=== PATIENT | female | born 1955 | race Caucasian/White ===

== ENCOUNTER → 2020-08-30 13:06 | Outpatient (REF) | payer MEDICARE, SELFPAY ==
--- NOTE | 2020-08-30 13:10 | CA_ITS ---
Transthoracic Echocardiogram Patient (Last, First, Middle): Karissa Her, Gender: Female Date of : 1955 Age: 64 Procedure Date: 08/30/2020 Procedure Type: Transthoracic Echocardiogram Location: OP Height: 160.02 cm Weight: 68.04 kg BSA: 1.71 m2 Heart Rate: bpm BP: 126 / 80 mmHg Plumbing Warehouse Helper: ELKE Referring MD: Fauzia Topete MD Photographic Laboratory Technician: Houston Perez MD Symptoms: R00.2 - Palpitations Study Quality: Good ECG Rhythm: Sinus Conclusions: - 1. Normal LV systolic function with impaired relaxation filling pattern 2. Dilated coronary sinus suggestive persistent left superior vena cava 3. Normal cardiac valvular Doppler 4. Normal RV systolic pressure 5. No gross pericardial effusion Findings Left Ventricle Normal left ventricular size, thickness, and systolic function. The visually estimated ejection fraction is between 65-70%. There is no evidence of regional wall motion abnormalities. Spectral Doppler is indicative of an impaired relaxation filling pattern. E/E prime ratio is between 8 and 15 consistent with indeterminate filling pressures. Right Ventricle Normal right ventricular cavity size and systolic function. Atria The left atrium is normal in size. Interatrial shunt cannot be excluded. The right atrium is normal in size. Aortic Valve The aortic valve was not well visualized. There is no aortic valve stenosis. There is no aortic valve regurgitation. Mitral Valve Likely normal mitral valve structure and function. There is trace mitral valve regurgitation. There is no mitral valve stenosis. Pulmonic Valve The pulmonic valve was not well visualized. Tricuspid Valve Likely normal tricuspid valve structure and function. There is mild tricuspid valve regurgitation. The right ventricular systolic pressure is normal. The right ventricular systolic pressure is 37 mmHg. Normal right atrial pressure. There is no evidence of pulmonary hypertension. Great Vessels All visible segments of the aorta are normal in size. The pulmonary artery was not well visualized. Venous The inferior vena cava is normal in size and collapses greater than 50% with inspiration. There is evidence of a dilated coronary sinus. 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 Prior Study Comparison No prior study available for comparison. Recommendations, Care & Conclusions Recommend saline contrast study for persistent left sided SVC. Measurements 2D Linear Measurements IVSd: 0.98 0.6-0.9/0.6-1.0 cm LVIDd: 4.89 3.9-5.3/4.2-5.9 cm LVIDd Index: 2.86 2.4-3.2/2.2-3.1 cm/m2 LVIDs: 2.70 2.0-3.6 cm LVPWd: 0.92 0.7-1.1 cm Ao Root: 2.70 2.1-3.5 cm LA Diam: 4.40 2.7-3.8/3.0-4.0 cm LAIDs Index: 2.57 1.5-2.3 cm/m2 LV Mass: 204.54 67-162/88-224 g LV Mass Index: 119.61 43-95/49-115 g/m2 LVOT Diam: 2.00 3.0+(-)1.3 cm 2D Systolic Function EF 4C: 72.30 >55% EF 2C: 69.10 >55% EF BiP: 70.00 >55% Mitral Valve MV Pk E: 0.69 MV PK A: 0.74 MV Decel Time: 189.00 E/A: 0.90 E'Lateral: 7.07 E'Medial: 4.68 E/E' Med: 14.70 E/E' Lat: 9.70 PHT: 55.00 MVA PHT: 4.00 Decel [place]: 3.63 Aortic Valve AoV Pk Shai: 1.37 AoV Pk Grad: 8.00 LVOT LVOT Pk Shai: 0.91 LVOT Mn Shai: 0.62 LVOT VTI: 0.22 LVOT Pk Grad: 3.00 LVOT Mn Grad: 2.00 LVOT Diam: 2.00 LVOT Area: 3.14 Diastolic Function MV Pk E: 0.69 MV Pk A: 0.74 E/A: 0.90 E'Medial: 4.68 E/E' Med: 14.70 E' Laterial: 7.07 E/E' Lat: 9.70 Tricuspid Valve TR Pk Shai: 2.92 TR Pk Grad: 34.00 RA Press: 3.00 RVSP: 37.00 Great Vessels Aorta Ao Root-2D: 2.70 2.0-3.7 cm Ao Asc: 3.30 2.1-3.4 cm Ao Arch: 2.70 Updated in Other Vendor System with Status of Final Houston Perez MD electronically signed on 08/31/2020 1:13:18 PM with status of Final
== END ==
LOC: HO.CARD 13:06
PROVIDERS: Visit Provider Internal Medicine
DX: R00.2 Palpitations (principal)
CPT/HCPCS: 93306

== ENCOUNTER 2020-10-12 14:03 | Outpatient (REF) | payer MEDICARE, SELFPAY | END 2020-10-12 14:04 | disposition home or self-care (01) | LOC: HO.LNP 14:03 | PROVIDERS: Visit Provider Hospitalist | DX: J01.90 Acute sinusitis, unspecified (principal); Z20.822 Contact with and (suspected) exposure to COVID-19 | CPT/HCPCS: U0003; U0005 ==

== ENCOUNTER 2022-09-05 11:48 | Emergency (ER) | payer MEDICARE, SELFPAY ==
[2022-09-05 11:52] VITALS: BP 193/93; PULSE 92; RESP 18; TEMP 36.6; O2SAT 96; BMI 26.6
--- NOTE | 2022-09-05 11:52 | ED.GENADULT ---
HPI - General Adult General Chief complaint: Wound/Laceration Stated complaint: Finger Lac Injury 09/05/22 Time Seen by Provider: 09/05/22 12:14 Source: patient and family (patient's ) Mode of arrival: ambulatory Limitations: no limitations History of Present Illness HPI narrative: Patient is a 66 year old assigned female at with a history of HTN and depression presenting to the emergency department today with a right thumb laceration. Patient states that she was using a mandolin and she cut her right thumb. Patient denies any dizziness, lightheadedness, abdominal pain, nausea, vomiting, fever, chills, blurry vision, double vision, loss of vision, chest pain, difficulty breathing, shortness of breath, back pain, night sweats, pain with urination, increased urinary frequency, increased urinary urgency, blood in her urine or stool, syncope or a near syncopal episode, bowel incontinence, bladder incontinence, bowel retention, bladder retention, or any other complaints at this time. Onset (ago): minute(s) Location: right and upper extremity Radiation: non-radiation Severity: mild Severity scale (1-10): 3 Quality: aching Pain Consistency: constant Relieving factors: none Exacerbating factors: none Associated symptoms: denies other symptoms Treatments prior to arrival: none Related Data Home Medications Medication Instructions Recorded Confirmed allopurinol 100 mg tablet 100 mg PO DAILY 12/14/19 04/21/22 atenolol 100 mg tablet 100 mg PO DAILY 12/14/19 04/21/22 mirtazapine 30 mg tablet 30 mg PO BEDTIME 12/14/19 04/21/22 rosuvastatin 10 mg tablet 10 mg PO BEDTIME 12/14/19 04/21/22 levothyroxine 75 mcg tablet 75 mcg PO DAILY 07/09/20 04/21/22 alprazolam 0.5 mg tablet 0.5 mg PO DAILY 12/13/20 04/21/22 amlodipine 5 mg tablet 5 mg PO DAILY 12/13/20 04/21/22 hydrochlorothiazide 25 mg tablet 25 mg PO DAILY 12/13/20 04/21/22 cholecalciferol (vitamin D3) 50 50 mcg PO DAILY 06/17/21 04/21/22 mcg (2,000 unit) tablet folic acid 1 mg tablet 1 mg PO DAILY 04/11/22 02/13/23 Previous Rx's Medication Instructions Recorded syringe with needle, safety 3 mL #100 ea 04/05/20 25 gauge x 1 blood sugar diagnostic (FreeStyle #100 ea 12/19/21 Test strips) freestyle glucometer #1 ea 12/19/21 lancets 28 gauge (FreeStyle #100 ea 12/19/21 Lancets) cyanocobalamin (vitamin B-12) 1,000 mcg IM .qmonth #100 mL 04/15/22 1,000 mcg/mL injection solution amoxicillin 875 mg-potassium 1 tab PO BID 7 days #14 tabs 09/05/22 clavulanate 125 mg tablet Allergies Allergy/AdvReac Type Severity Reaction Status Date / Time ANTONIO Inhibitors Allergy Severe ANGIOEDEMA Verified 04/21/22 09:57 [ANTONIO INHIBITORS] morphine Allergy Unknown rash Verified 04/21/22 09:57 atorvastatin [Lipitor] AdvReac Unknown muscle pain Verified 04/21/22 09:57 metformin AdvReac Unknown diarrhea Verified 04/21/22 09:57 pravastatin AdvReac Unknown mylagia Verified 04/21/22 09:57 Review of Systems Constitutional: Constitutional: Reports no additional constitutional complaints, Denies chills, Denies fever(s) and Denies night sweats Eyes: Eyes: Reports no additional eye complaints, Denies blurry vision, Denies change in vision, Denies diplopia, Denies eye discharge, Denies loss of vision and Denies eye pain ENT: Denies dizziness Cardiovascular: Cardiovascular: Reports no additional cardiovascular complaints, Denies chest pain, Denies lightheadedness, Denies Loss of Consciousness and Denies dyspnea Respiratory: Respiratory: Reports no additional respiratory complaints and Denies dyspnea Gastrointestinal: Gastrointestinal: Reports no additional gastrointestinal complaints, Denies abdominal pain, Denies melena, Denies hematochezia, Denies change in bowel habits and Denies change in stool character Genitourinary: Genitourinary: Denies hematuria, Denies urinary frequency, Denies dysuria, Denies urinary incontinence, Denies urinary hesitancy and Denies urinary urgency Musculoskeletal: Musculoskeletal: Reports no additional musculoskeletal complaints, Denies numbness and Denies tingling Comments: right thumb laceration Neurologic: Denies dizziness, Denies loss of vision, Denies numbness and Denies tingling Psychiatric: Psychiatric: Reports no additional psychiatric complaints Endocrine: Endocrine: Reports no additional endocrine complaints Hematologic/Lymphatic: Hematologic/Lymphatic: Reports no additional hematologic/lymphatic complaints Allergic/Immunologic: Allergic/Immunologic: Reports no additional allergic/immunologic complaints [facility] Past Medical History Attestation statement: The following information was validated with the patient. (patient's validated all information) Source: old records reviewed, obtained from family (patient's provided additional history and confirmed the history provided by the patient.) and nursing notes reviewed Medical History Annual physical exam Chronic kidney disease Colonoscopy refused Depression Folic acid deficiency HTN (hypertension) Hyperglycemia Hyperlipidemia Hypothyroid Mammogram normal Normal Pap smear Palpitations Proteinuria PTSD (post-traumatic stress disorder) Spleen injury Tongue cancer Vitamin D deficiency Surgical History H/O colonoscopy Family History Family History Father Lung cancer HTN (hypertension) Mother HTN (hypertension) Brother No problems noted. Sister No problems noted. Social History Social History Housing: House Alcohol intake: current Alcohol intake frequency: holidays/special occasions only Patient Tobacco Use Status: Former Tobacco user Smoked in Last 30 Days: No e-Cigarette/Vaping Use: Never Used Use of substances other than those prescribed or required for medical reasons: No Advance Directives: No Advance Directives Information Provided: No Current occupational status: retired Cognitive needs: No Hearing needs: No Vision needs: Yes Physical Exam ED Vital Signs: Vital Signs - 24 hr 09/05/22 11:52 Temperature 97.9 F Pulse Rate 92 Respiratory Rate 18 Blood Pressure 193/93 H Pulse Oximetry 96 Oxygen Delivery Method Room Air BMI result Body Mass Index 26.6 Const General: cooperative, no acute distress, alert and awake Nutritional Appearance: well nourished Orientation/consciousness: patient oriented x3 Limitations: no limitations HENMT Head: Yes normal to inspection and Yes atraumatic Ears: hearing grossly normal bilaterally and external ears normal General nose exam: Normal external nose present, no nasal discharge noted and no epistaxis Face and sinus: Yes normal facial exam, No abrasion and No laceration Mouth: Normal oral and palatal mucosa present, no drooling and no muffled voice Eyes General: appearance normal, both eyes and all related structures Periorbital: periorbital findings normal Eyelids: Yes eyelids normal Conjunctivae: conjunctivae normal Pupils: Equal, round and reactive pupils present EOM: EOMs intact bilaterally Neck Neck: Yes normal visual inspection, Yes full ROM and Yes no lymphadenopathy Chest Chest palpation & inspection: normal inspection of the chest Resp Effort & Inspection: normal respiratory effort and able to speak in complete sentences GI Inspection: Yes normal to inspection Neuro General: patient oriented x3 and moves all extremities Cranial nerves: Yes Equal, round and reactive pupils present Cognition (Neuro): normal cognition Motor exam (neuro): 5/5 motor strength present throughout Sensory Exam: Normal double simultaneous stimulation for sensation Coordination: [id number] test normal Extrem Other: 2cm laceration to the radial aspect of the right thumb General: Yes full ROM and Yes capillary refill normal Psych Appearance: grossly normal Mental Status: mental status grossly normal Affect: normal affect Attitude: cooperative Thought process: Normal thought process present Thought content: Normal thought content present Insight: Good insight present (Psych) Course Course Course Narrative: This is an RME: Additional HPI, ROS, PE not included below will be deferred to primary provider. 66 year old female presents w/ avulsion to R. thumb s/p using a mandoline cutter [employer]. Unclear last tetanus shot. Plan- wound care, boostrix Medications Administered Discontinued Medications Generic Name Dose Route Start Last Admin Trade Name Freq PRN Reason Stop Dose Admin Diphtheria/Tetanus/Acell Pertussis 0.5 ml 09/05/22 11:52 09/05/22 12:46 Diphth,Pertus(Acell),Tet Adult 0.5 Ml Syringe IM 09/05/22 11:53 0.5 ml .ONCE ONE Administration Lidocaine HCl 10 ml 09/05/22 12:32 09/05/22 13:50 Lidocaine Hcl 1 % Mpf 5 Ml Vial SUBCUT 09/05/22 12:33 10 ml ONCE ONE Administration Procedures Laceration Laceration 1: Site: other (thumb) Side (If applicable): right Size (cm): 2 Description: linear Depth: simple, single layer Local Anesthetic: lidocaine 1% Amount of anesthesia used (mL): 10 Pre-repair: wound explored, irrigated extensively and deep structures intact Skin layer closed with: other (prolene) Size (cm): 6-0 Number of sutures: 1 Technique: simple, interrupted Medical Decision Making Medical Decision Making MDM Narrative: Patient is a 66 year old assigned female at with a history of HTN and depression presenting to the emergency department today with a right thumb laceration. Patient's physical exam was as noted in the physical exam portion of this chart. I explained my physical exam findings to the patient and the patient's . I answered all questions asked by the patient and the patient's . Patient's laceration was repaired with 1 suture and covered with surgicell given it's shaved nature being largely unable to be repaired. Patient's wound was then covered with a non-adherent gauze. Patient's PMS was intact prior to and after suturing and wound dressing. I stressed the importance of the patient taking her medication as prescribed. I stressed the importance of the patient following up with her primary care provider. I stressed the importance of performing daily wound checks and dressing changes. I stressed the importance of the patient having her suture removed in 7-10 days. I stressed the importance of the patient returning to the emergency department immediately if her symptoms were to worsen or if she were to develop any dizziness, shortness of breath, difficulty breathing, chest pain, blurry vision, loss of vision, nausea, vomiting, abdominal pain, fever, chills, back pain, or any other complaints. Patient and the patient's verbalized agreement and understanding with this treatment plan and discharge. Differential Diagnosis Differential Diagnoses: The differential diagnosis associated with the presentation includes Right thumb laceration Thumb abrasion Thumb avulsion Independent Historian Clinical information obtained from an independent historian. History obtained from or confirmed by: Spouse (patient's provided additional history and confirmed the history provided by the patient.) Prescription Management I considered prescription management with: Antibiotic (patient prescribed an antibiotic) Chronic Conditions Patient?s care impacted by: Hypertension Discharge Plan Discharge Clinical Impression: Laceration of thumb Patient Disposition: Home, Self-Care Instructions: Care For Your Stitches (DC), Laceration (DC), Laceration Without Closure (ED) Additional Instructions: Have your suture (1) removed in 7-10 days. Do NOT get the affected area wet at all for 3 days and do NOT soak the affected area until after the suture is out. Perform daily wound checks and dressing changes after your initial dressing change after day 3. Take your antibiotic as prescribed. Follow up with your primary care provider. Return to the emergency department immediately if your symptoms worsen or if you develop any dizziness, shortness of breath, difficulty breathing, chest pain, blurry vision, loss of vision, nausea, vomiting, abdominal pain, fever, chills, back pain, or any other complaints. Prescriptions: New amoxicillin-pot clavulanate 875-125 mg tablet 1 tab PO BID 7 Days Qty: 14 0RF No Action (DME) syringe with needle, safety 3 mL 25 gauge x 1 syringe See Rx Instructions .ROUTE .MEDSUPPLY Qty: 100 4RF Rx Instructions: use one syringe once a month for B12 injections (DME) lancets [FreeStyle Lancets] 28 gauge misc See Rx Instructions .Route Qty: 100 5RF Rx Instructions: check glucose once a day (DME) freestyle glucometer See Rx Instructions .Route .MEDSUPPLY Qty: 1 0RF Rx Instructions: As directed (DME) FreeStyle Test Strip See Rx Instructions .Route Qty: 100 5RF Rx Instructions: check glucose once a day cyanocobalamin (vitamin B-12) 1,000 mcg/mL solution 1,000 mcg IM .qmonth Qty: 100 6RF allopurinol 100 mg tablet 100 mg PO DAILY rosuvastatin 10 mg tablet 10 mg PO BEDTIME atenolol 100 mg tablet 100 mg PO DAILY mirtazapine 30 mg tablet 30 mg PO BEDTIME levothyroxine 75 mcg tablet 75 mcg PO DAILY amlodipine 5 mg tablet 5 mg PO DAILY alprazolam 0.5 mg tablet 0.5 mg PO DAILY hydrochlorothiazide 25 mg tablet 25 mg PO DAILY cholecalciferol (vitamin D3) 50 mcg (2,000 unit) tablet 50 mcg PO DAILY folic acid 1 mg tablet 1 mg PO DAILY Referrals: Fauzia Topete MD [Primary Care Provider] - Interventions: ED Discharge Assessment Last Done: 09/05/22 14:04 Discharge Date/Time: 09/05/22 14:05 Print Language: Tanzanian
--- OUTSIDE RECORDS SUMMARY | 2022-09-05 12:14 | XMS_ITS | Continuity of Care Document ---
Author Name Unknown Organization [facility] Address [address] [place] [id number] Care Team Providers Care Slurry Man Name Role Phone Fauzia Topete MD Primary Care Physician [phone] Encounter [facility] Date(s): 01/18/21 - 02/17/21 [facility] [address] [place] [id number] Allergies, Adverse Reactions, Alerts Substance Reaction Severity Status morphine 1 Active ANTONIO inhibitors angioedema Active 1itching/rash and lump in throat Immunizations Given and Recorded Vaccine Date Status Refusal Reason influenza virus vaccine, inactivated 1 12/12/17 Gi petros influenza virus vaccine, inactivated 2 01/16/17 Gi petros influenza virus vaccine, inactivated 03/13/16 Give n influenza virus vaccine, inactivated 12/30/11 Lazarus rded influenza virus vaccine, inactivated 3 04/01/09 Re corded influenza virus vaccine, inactivated 4 04/01/09 Re corded Pneumococcal Poly (PPV23) (oldterm) 5 02/04/17 Giv en Zoster Vaccine Live 6 02/04/17 Given Meningococcal Conjugate Vaccine 7 04/06/09 Recorde d Meningococcal Conjugate Vaccine 8 04/05/09 Recorde d Haemophilus B conjugate (HbOC) vaccine 9 04/05/09 Recorded pneumococcal 23-valent vaccine 10 04/01/09 Recorde d Tet/diphth/pertussis, acel (oldterm) 11 06/21/08 Tono teixeira 1Result Comment: [12/12/2017] [id number] 2Result Comment: [01/16/2017] [facility] [id number] 3Result Comment: [01/15/2017] done at [facility] 4Result Comment: [01/15/2017] done at [facility] 5Result Comment: [02/04/2017] [facility] [id number] 6Result Comment: [02/04/2017] [facility] [id number] 7Result Comment: [01/15/2017] done at [facility] 8Result Comment: [01/15/2017] done at [facility] 9Result Comment: [01/15/2017] done at [facility] 10Result Comment: [01/15/2017] done at [facility] 11Admin Note: sanofi pasteur Medications Allopurinol 100 mg, By Mouth, Daily, Dr. Alfaro, Refills 0, Maintenance, 03/13/16 9:58:26 Start Date: 03/13/16 Status: Ordered Alprazolam 0.5 mg, By Mouth, 2 times a day, Refills 0, Maintenance, 01/12/19 14:55:08 EST Start Date: 01/12/19 Status: Ordered atenolol 100 mg oral tablet 1 tablet = 100 mg, By Mouth, Daily, Dr. Alfaro, 0 Refills, Maintenance, 04/27/17 13:54:51 Start Date: 04/27/17 Status: Ordered B-12 Intramuscular, 0 Refills, Maintenance, 01/12/19 14:55:27 EST Start Date: 01/12/19 Status: Ordered hydrochlorothiazide 25 mg oral tablet 25 mg, 1, tablet, By Mouth, Daily, Refills 0, Maintenance, 01/18/21 10:47:00 EST, Partial fill uponpatient request if the prescription is for a schedule II opioid drug. Start Date: 01/18/21 Status: Ordered levothyroxine 75 mcg (0.075 mg) oral capsule 1 capsule = 75 mcg, By Mouth, Daily, 0 Refills, Maintenance, 01/18/21 10:47:00 EST, Partial fill upon patient request if the prescription is for a schedule II opioid drug. Start Date: 01/18/21 Status: Ordered Remeron 30 mg oral tablet 1 tablet = 30 mg, By Mouth, Daily at bedtime, Generic only, # 90 tablet, 1 Refills, Maintenance, 05/08/17 9:23:53, Tablet Start Date: 05/08/17 Stop Date: 11/04/17 Status: Ordered Rosuvastatin By Mouth, Daily, 0 Refills, Maintenance, 01/18/21 10:47:00 EST, Partial fill upon patient request if the prescription is for a schedule II opioid drug. Start Date: 01/18/21 Status: Ordered syringes, 1ml 25g, 1 in syringes, 1ml 25g, 1 in, See Instructions, # 30 each, Refills 3, Tot. Refills 3, Maintenance, please use every 30 days for B12 inj. Please disreguard 31 G 07/22, 06/25/18 11:47:56 EDT, Compound Start Date: 06/25/18 Status: Ordered Vitamin B-12 1000 mcg/mL injectable solution 1 mL = 1,000 mcg, Intramuscular, Every 30 days, # 3 mL, 0 Refills, Maintenance, 09/23/18 11:37:00 EDT, Solution Start Date: 09/23/18 Status: Ordered Problem List Condition Effective Dates Status Health Status Inform ant Anxiety(Confirmed) Active Chronic kidney disease stage 3(Confirmed) Active Hyperlipidemia(Confirmed) Active Hypertension(Confirmed) Active Pernicious anemia(Confirmed) Active Splenic rupture(Confirmed) Active Social History Social History Type Response Smoking Status Former smoker; Tobac co user in household: No; Type: Cigarettes; Other: Quit in 2013; Tobacco use times per day: half a pack to pack a day; Number of years: 30; Total pack years: 30; entered on: 05/29/14 Sex
--- OUTSIDE RECORDS SUMMARY | 2022-09-05 12:14 | XMS_ITS | Continuity of Care Document ---
Author Name Unknown Organization [facility] Address [address] [place] [address]- Care Team Providers Care Government Relations Analyst Name Role Phone Fauzia Topete MD Primary Care Physician [phone] [facility] Date[facility]s): 09/13/20 - 10/13/[address] [address] Attending Physician: AdmKadi monte Admitting Physician: Admtr, Kadi Referring Physician: Admtr, Ar8 Allergies, Adverse Reactions, Alerts Substance Reaction Severity [...] Recorde d Tet/diphth/pertussis, acel (oldterm) 11 06/21/08 G puneet 1Result Comment: [12/12/2017] [id number] 2Result Comment: [01/16/2017] [facility] 07189-657-10 3Result Comment: [01/15/2017] done at [facility] 4Result Comment: [01/15/2017] done at [facility] 5Result Comment: [02/04/2017] [facility] [id number] 6Result Comment: [02/04/2017] [facility] [id number] 7Result Comment: [01/15/2017] done at [facility] 8Result Comment: [01/15/2017] done at [facility] 9Result Comment: [01/15/2017] done at [facility] 10Result Comment: [01/15/2017] done at [facility] 11Admin Note: sanofi pasteur Medications Allopurinol 100 mg, By Mouth, Daily, Dr. Alfaro, Refills 0, Maintenance, 03/13/16 9:58:26 Start Date: 03/13/16 Status: Ordered Alprazolam 0.5 mg, By Mouth, 2 times a day, Refills 0, Maintenance, 01/12/19 14:55:08 EST Start Date: 01/12/19 Status: Ordered amLODIPine 5 mg oral tablet 10 mg, 2, tablet, By Mouth, Daily, # 180 tablet, Refills 2, Tot. Refills 2, Maintenance, 01/29/17 11:27:39 EST, Route to Pharmacy Electronically, [facility] Start Date: 01/29/17 Stop Date: 10/26/17 Status: Ordered atenolol 100 mg oral tablet 1 tablet = 100 mg, By Mouth, Daily, Dr. Alfaro, 0 Refills, Maintenance, 04/27/17 13:54:51 Start Date: 04/27/17 Status: Ordered B-12 Intramuscular, 0 Refills, Maintenance, 01/12/19 14:55:27 EST Start Date: 01/12/19 Status: Ordered Folic Acid = 1 mg, Daily, 0 Refills, Maintenance, 04/27/17 13:56:09 Start Date: 04/27/17 Status: Ordered oxyCODONE 5 mg/5 mL oral solution See Instructions, 5 mL PO QHS, PRN pain. Hold in mouth 30 seconds under tongue. Use Advil or tylenol for breakthrough pain, # 60 mL, 0 Refills, Maintenance, 08/08/19 11:24:00 EDT, Solution, [id number], Partial fill upon patient request, 158, c... Start Date: 08/08/19 Status: Ordered Remeron 30 mg oral tablet 1 tablet = 30 mg, By Mouth, Daily at bedtime, Generic only, # 90 tablet, 1 Refills, Maintenance, 05/08/17 9:23:53, Tablet Start Date: 05/08/17 Stop Date: 11/04/17 Status: Ordered Silvadene 1% cream 1 application, Topically, 3 times a day, apply to affected areas TID, # 400 Gm, 2 Refills, Maintenance, 03/15/19 15:03:00 EST, Cream, [facility]/pharmacy #[id number], 1 application Topically 3 times a day,Instr:apply to affected areas TID, 158, cm, 02/22/19 12:59:... Start Date: 03/15/19 Status: Ordered syringes, 1ml 25g, 1 in [...]
--- OUTSIDE RECORDS SUMMARY | 2022-09-05 12:14 | XMS_ITS | Continuity of Care Document ---
Author Name Unknown Organization [facility] Address [address] [place] [address]- Care Team Providers Care Armoured Corps Officer Name Role Phone Fauzia Topete MD Primary Care Physician [phone] [facility]counter [facility] Date(s): 06/25/21 - 07/25/21 [facility] [address] [place], [place] [address] Attending Physician: Kadi Nuñez Admitting Physician: Kadi Nuñez Referring Physician: AdmtrKadi Allergies, Adverse Reactions, Alerts Substance Reaction Severity [...] 11 06/21/08 G puneet 1Result Comment: [12/12/2017] 22144-699-99 2Result Comment: [01/16/2017] [facility] [id number] 3Result Comment: [01/15/2017] done at [facility] 4Result Comment: [01/15/2017] done at [facility] 5Result Comment: [02/04/2017] [facility] [id number] 6Result Comment: [02/04/2017] [facility] [id number] 7Result Comment: [01/15/2017] done at [facility] 8Result Comment: [01/15/2017] done at [facility] 9Result Comment: [01/15/2017] done at [facility] 10Result Comment: [01/15/2017] done at [facility] 11Admin Note: sanofi pasteur Medications Allopurinol 100 mg, By Mouth, Daily, Dr. Alfaro, Refills 0, Maintenance, 03/13/16 9:58:26 Start Date: 03/13/16 Status: Ordered Alprazolam 0.5 mg, By Mouth, 2 times a day, Refills 0, Maintenance, 01/12/19 14:55:08 EST Start Date: 01/12/19 Status: Ordered amLODIPine 5 mg oral tablet 5 mg, 1, tablet, By Mouth, Daily, Refills 0, Maintenance, 07/19/21 9:45:00 EDT, Partial fill upon patient request if the prescription is for a schedule II opioid drug. Start Date: 07/19/21 Status: Ordered atenolol 100 mg oral tablet 1 tablet = 100 mg, By Mouth, Daily, Dr. Alfaro, 0 Refills, Maintenance, 04/27/17 13:54:51 Start Date: 04/27/17 Status: Ordered B-12 Intramuscular, 0 Refills, Maintenance, 01/12/19 14:55:27 EST Start Date: 01/12/19 Status: Ordered Fish Oil 1200 mg oral capsule 1 capsule = 1,200 mg, By Mouth, 3 times a day, 0 Refills, Maintenance, 07/19/21 9:46:00 EDT, Partial fill upon patient request if the prescription is for a schedule II opioid drug. Start Date: 07/19/21 Status: Ordered folic acid 1 mg oral tablet 1 mg, 1, tablet, By Mouth, Daily, # 30 tablet, Refills 0, Maintenance, 07/19/21 9:45:00 EDT, Partial fill upon patient request if the prescription is for a schedule II opioid drug. Start Date: 07/19/21 Status: Ordered hydrochlorothiazide 25 mg oral tablet [...] 05/08/17 Stop Date: 11/04/17 Status: Ordered Rosuvastatin = 10 mg, By Mouth, Daily, 0 Refills, Maintenance, 01/18/21 [...]
--- OUTSIDE RECORDS SUMMARY | 2022-09-05 12:14 | XMS_ITS | Continuity of Care Document ---
Author Name Unknown Organization [facility] Address [address] [place] [address]- Care Team Providers Care Boat Deckhand Name Role Phone Fauzia Topete MD Primary Care Physician Encounter [facility] Date(s): 05/09/20 - 06/08/20 [facility] [address] [place] [id number] Attending Physician: Kadi Nuñez Admitting Physician: AdmtrKadi Referring Physician: Admtr, Ar8 Allergies, Adverse Reactions, [...] 11 06/21/08 G puneet 1Result Comment: [12/12/2017] [id number] 2Result Comment: [01/16/2017] [facility] 33500-871-60 3Result Comment: [01/15/2017] done at [facility] 4Result Comment: [01/15/2017] done at [facility] 5Result Comment: [02/04/2017] [facility] [id number] 6Result Comment: [02/04/2017] [facility] 5524-6926-35 7Result Comment: [01/15/2017] done at [facility] 8Result Comment: [01/15/2017] done at [facility] 9Result Comment: [01/15/2017] done at [facility] 10Result Comment: [01/15/2017] done at [facility] 11Admin Note: sanofi pasteur Medications Allopurinol [...] Refills, Maintenance, 08/08/19 11:24:00 EDT, Solution, [id number], Partial fill upon patient request, 158, c... [...] 2 Refills, Maintenance, 03/15/19 15:03:00 EST, Cream, [facility]/pharmacy #[id number], 1 application Topically 3 times a [...]
--- OUTSIDE RECORDS SUMMARY | 2022-09-05 12:14 | XMS_ITS | Continuity of Care Document ---
Author Name Unknown Organization [facility] Address [address] [place] [address]- Care Team Providers Care Abrasive Mixer Name Role Phone Fauzia Topete MD Primary Care Physician [phone] [facility]counter [facility] Date[facility]s): 12/11/21 - 01/10/22 [facility] [address] [place], [place] [address] Attending Physician: Kadi Nuñez Admitting Physician: Kadi [...] 11 06/21/08 G puneet 1Result Comment: [12/12/2017] [id number] 2Result Comment: [01/16/2017] [facility] [id number] 3Result Comment: [01/15/2017] done at [facility] 4Result Comment: [01/15/2017] done at [facility] 5Result Comment: [02/04/2017] [facility] [id number] 6Result Comment: [02/04/2017] [facility] 2391-3243-32 7Result Comment: [01/15/2017] done at [facility] 8Result Comment: [01/15/2017] done at [facility] 9Result Comment: [01/15/2017] done at [facility] 10Result Comment: [01/15/2017] done at [facility] 11Admin Note: sanofi pasteur Medications [...] Date: 09/23/18 Status: Ordered Problem List Condition Confirmation Course Effective Dates Status H ealth Status Informant Anxiety Confirmed Active Chronic kidney disease stage 3 Confirmed Active Hyperlipidemia Confirmed Active Hypertension Confirmed Active Pernicious anemia Confirmed Active Splenic rupture Confirmed Active Social History Social History Type Response Smoking Status Former smoker; Tobac co user in household: No; Type: Cigarettes; Other: Quit in 2013; Tobacco use times per day: half a pack to pack a day; Number of years: 30; Total pack years: 30; entered on: 05/29/14 Sex Patient Care team information Personnel Name: Fauzia Topete MD Address: Address: [address] [place], [place] [address]
--- OUTSIDE RECORDS SUMMARY | 2022-09-05 12:15 | XMS_ITS | Continuity of Care Document ---
Author Name Unknown Organization [facility] Address [address] [place] [address]- Care Team Providers Care Color Printer Operator Name Role Phone Fauzia Topete MD Primary Care Physician [facility]counter [facility] Date(s): 06/25/21 - 09/18/21 [facility] [address] [place] [address]- Discharge Disposition: A-D/C Home Attending Physician: Rudi Mcnally MD Admitting Physician: Rudi Mcnally MD Referring Physician: Saulo Goel JR, MD Allergies, Adverse Reactions, Alerts Substance Reaction Severity [...] 11 06/21/08 G puneet 1Result Comment: [12/12/2017] [id number] 2Result Comment: [01/16/2017] [facility] [id number] 3Result Comment: [01/15/2017] done at [facility] 4Result Comment: [01/15/2017] done at [facility] 5Result Comment: [02/04/2017] [facility] [id number] 6Result Comment: [02/04/2017] [facility] [id number] 7Result Comment: [01/15/2017] done at [facility] 8Result Comment: [01/15/2017] done at [facility] 9Result Comment: [01/15/2017] done at [facility] 10Result Comment: [01/15/2017] done at [facility] 11Admin Note: sanofi pasteur Medications Allopurinol 100 [...] Active Pernicious anemia(Confirmed) Active Splenic rupture(Confirmed) Active Vital Signs Most recent to oldest [Reference Range]: 1 Height 158 cm (5/13/22 9:17 AM) Weight 69.8 kg (07/19/21 9:17 AM) Pulse Rate [55-90 bpm] 74 bpm (07/19/21 9:17 AM) Body Mass Index [18.5-24.99] 27.96 *H* (07/19/21 9:17 AM) Blood Pressure [90-138/55-84 mm Hg] 138/ 83mm Hg (07/19/21: AM) Temperature [96.8-100.4 DegF] 97.5 DegF (07/19/21 9: AM) Blood pressure sites Arm, right (07/19/21 9: AM) Temperature Route Temporal (07/19/21: AM) Dry Weight 69.8 kg (07/19/21 9:17 AM) Weight Obtained Via Standing scale (07/19/21 9:17 AM) Dry Weight Obtained Via Standing scale (07/19/21 9:17 AM) Social History Social History Type Response Smoking Status Former smoker; Tobac co user in household: No; Type: Cigarettes; Other: Quit in 2013; Tobacco use times per day: half a pack to pack a day; Number of years: 30; Total pack years: 30; entered on: 05/29/14 Sex
--- OUTSIDE RECORDS SUMMARY | 2022-09-05 12:15 | XMS_ITS | Continuity of Care Document ---
Author Name Unknown Organization [facility] Address [address] [place] [address]- Care Team Providers Care Equine Intern Name Role Phone Fauzia Topete MD Primary Care Physician [phone] Encounter [facility] Date(s): 12/10/20 - 03/20/21 [facility] [address] [place] [id number] Discharge Disposition: A-D/C Home Attending Physician: Rudi [...] 11 06/21/08 G puneet 1Result Comment: [12/12/2017] [id number] 2Result Comment: [01/16/2017] [facility] 29543-118-28 3Result Comment: [01/15/2017] done at [facility] 4Result Comment: [01/15/2017] done at [facility] 5Result Comment: [02/04/2017] [facility] [id number] 6Result Comment: [02/04/2017] [facility] [id number] 7Result Comment: [01/15/2017] done at [facility] 8Result Comment: [01/15/2017] done at [facility] 9Result Comment: [01/15/2017] done at [facility] 10Result Comment: [01/15/2017] [facility] oldest [Reference Range]: 1 Height 158 cm (01/18/21 10:45 AM) Weight 67.3 kg (01/18/21 10:45 AM) Pulse Rate [55-90 bpm] 79 bpm (01/18/21 10:45 AM) Body Mass Index [18.5-24.99] 26.96 *H* (01/18/21 10:45 AM) Blood Pressure [90-138/55-84 mm Hg] 120/ 74mm Hg (01/18/21 10:45 AM) Temperature [96.8-100.4 DegF] 98.1 DegF (01/18/21 10:45 AM) Blood pressure sites Arm, right (01/18/21 10:45 AM) Temperature Route Temporal (01/18/21 10:45 AM) Dry Weight 67.3 kg (01/18/21 10:45 AM) Weight Obtained Via Standing scale (01/18/21 10:45 AM) Dry Weight Obtained Via Standing scale (01/18/21 10:45 AM) Social History Social History Type Response Smoking Status Former smoker; Tobac co user in household: No; Type: Cigarettes; Other: Quit in 2013; Tobacco use times per day: half a pack to pack a day; Number of years: 30; Total pack years: 30; entered on: 05/29/14 Sex
--- OUTSIDE RECORDS SUMMARY | 2022-09-05 12:15 | XMS_ITS | Continuity of Care Document ---
Author Name Unknown Organization [facility] Address [address] [place] [address]- Care Team Providers Care Sales Process Manager Name Role Phone Fauzia Topete MD Primary Care Physician Encounter [facility] Date(s): 11/22/19 - 02/14/20 [facility] [address] [place] [id number] Discharge Disposition: A-D/C Home Attending Physician: Rudi Mcnally MD Admitting Physician: Rudi Mcnally MD Referring Physician: Cezar Moreno MD Allergies, Adverse Reactions, Alerts Substance Reaction [...] 11 06/21/08 G puneet 1Result Comment: [12/12/2017] [id number] 2Result Comment: [01/16/2017] [facility] 08173-370-43 3Result Comment: [01/15/2017] done at [facility] 4Result Comment: [01/15/2017] done at [facility] 5Result Comment: [02/04/2017] [facility] [id number] 6Result Comment: [02/04/2017] [facility] [id number] 7Result Comment: [01/15/2017] done at [facility] 8Result Comment: [01/15/2017] done at [facility] 9Result Comment: [01/15/2017] done at [facility] 10Result Comment: [01/15/2017] done at [facility] [...] 2 Refills, Maintenance, 03/15/19 15:03:00 EST, Cream, [facility]/pharmacy #[id number], 1 application Topically 3 times [...]
--- OUTSIDE RECORDS SUMMARY | 2022-09-05 12:15 | XMS_ITS | Continuity of Care Document ---
Author Name Unknown Organization [facility] ancer Care Address [address] [place] [address]- Care Team Providers Care Cemetery Vault Installer Name Role Phone Fauzia Topete MD Primary Care Physician [facility] Date[facility]s): 12/10/20 - 01/09/21 [facility] [address] [place] [address] Attending Physician: Kadi Nuñez Admitting Physician: AdmtrKadi Referring Physician: Admtr, ArJeremy Allergies, Adverse Reactions, Alerts Substance Reaction Severity [...] 11 06/21/08 G puneet 1Result Comment: [12/12/2017] [id number] 2Result Comment: [01/16/2017] [facility] [id number] 3Result Comment: [01/15/2017] done at [facility] 4Result Comment: [01/15/2017] done at [facility] 5Result Comment: [02/04/2017] [facility] [id number] 6Result Comment: [02/04/2017] [facility] [id number] 7Result Comment: [01/15/2017] done at [facility] 8Result Comment: [01/15/2017] done at [facility] 9Result Comment: [01/15/2017] done at [facility] 10Result Comment: [01/15/2017] done at [facility] 11Admin Note: sanofi pasteur Medications Allopurinol [...] 2 Refills, Maintenance, 03/15/19 15:03:00 EST, Cream, [facility]/pharmacy #[id number], 1 application Topically 3 times [...]
--- OUTSIDE RECORDS SUMMARY | 2022-09-05 12:15 | XMS_ITS | Continuity of Care Document ---
Author Name Unknown Organization [facility] Address [address] [place] [address]- Care Team Providers Care Casino Floor Runner Name Role Phone Fauzia Topete MD Primary Care Physician [facility] Date(s): 01/05/19 - 06/25/19 [facility] [address] [place] [address] [facility] Discharge Disposition: A-D/C Home Attending Physician: Cezar Moreno MD Admitting Physician: Rudi Mcnally MD Referring Physician: Saulo Goel MD Allergies, Adverse Reactions, Alerts Substance Reaction [...] 11 06/21/08 G puneet 1Result Comment: [12/12/2017] [id number] 2Result Comment: [01/16/2017] [facility] [id number] 3Result Comment: [01/15/2017] done at [facility] 4Result Comment: [01/15/2017] done at [facility] 5Result Comment: [02/04/2017] [facility] 9433-0869-12 6Result Comment: [02/04/2017] [facility] [id number] 7Result Comment: [01/15/2017] done at [facility] 8Result Comment: [01/15/2017] done at [facility] 9Result Comment: [01/15/2017] done at [facility] 10Result Comment: [01/15/2017] done at [facility] 11Admin Note: sanofi pasteur Medications [...] oral solution See Instructions, 5 mL PO Q6-8 hours, PRN pain. Hold in mouth 30 seconds under tongue., # 180 mL, 0Refills, Maintenance, 06/20/19 14:44:00 EDT, Solution, [facility]/pharmacy #[id number], Partial fill upon patient request, 158, cm, 04/25/19 15:34:00 EST, Height, 6... Start Date: 06/20/19 Status: Ordered Remeron 30 mg oral tablet 1 tablet = 30 mg, By Mouth, Daily at bedtime, Generic only, # 90 tablet, 1 Refills, Maintenance, 05/08/17 9:23:53, Tablet Start Date: 05/08/17 Stop Date: 11/04/17 Status: Ordered Silvadene 1% cream 1 application, Topically, 3 times a day, apply to affected areas TID, # 400 Gm, 2 Refills, Maintenance, 03/15/19 15:03:00 EST, Cream, [facility]/pharmacy #[id number], 1 application Topically 3 [...] Most recent to oldest [Reference Range]: 1 2 3 Height 158 cm (04/25/19 3:34 PM) 158 cm (02/22/19 12:59 PM) 158 cm (02/21/19 3:45 PM) Weight 60.3 kg (04/25/19 3:34 PM) 67.6 kg (01/17/19 9:25 AM) 68.6 kg (01/12/19 2:45 PM) Oxygen Saturation [94-100 %] 98 % (02/21/19 3:45 PM) Pulse Rate [55-90 bpm] 89 bpm (04/25/19 3:34 PM) 80 bpm (01/17/19 9:25 AM) 80 bpm (01/12/19 2:45 PM) Body Mass Index [18.5-24.99] 24.15 (04/25/19 3:34 PM) 27.08 *H* (01/17/19 9:25 AM) 27.48 *H* (01/12/19 2:45 PM) Blood Pressure [90-138/55-84 mm Hg] 144/72mm Hg *H* (04/25/19 3:34 PM) 150/83mm Hg *H* (01/17/19 9:25 AM) 156/76mm Hg *H* (01/12/19 2:45 PM) Respiratory Rate [16-30 br/min] 20 br/min (02/21/19 3:45 PM) Temperature [96.8-100.4 DegF] 97.8 DegF (04/25/19 3:34 PM) 97.8 DegF (02/22/19 12:59 PM) 99.3 DegF (01/17/19 9:25 AM) Mode of Delivery (Oxygen) Room air (02/21/19 3:45 PM) Blood pressure sites Arm, right (04/25/19 3:34 PM) Arm, right (01/17/19 9:25 AM) Arm, right (01/12/19 2:45 PM) Temperature Route Temporal (04/25/19 3:34 PM) Oral (02/22/19 12:59 PM) Temporal (01/17/19 9:25 AM) Dry Weight 60.3 kg (04/25/19 3:34 PM) 67.6 kg (01/17/19 9:25 AM) 68.6 kg (01/12/19 2:45 PM) Weight Obtained Via Standing scale (04/25/19 3:34 PM) Standing scale (01/17/19 9:25 AM) Standing scale (01/12/19 2:45 PM) Dry Weight Obtained Via Standing scale (04/25/19 3:34 PM) Standing scale (01/17/19 9:25 AM) Standing scale (01/12/19 2:45 PM) Social History Social History Type Response Smoking Status Former smoker; Tobac co user in household: No; Type: Cigarettes; Other: Quit in 2013; Tobacco use times per day: half a pack to pack a day; Number of years: 30; Total pack years: 30; entered on: 05/29/14 Sex
--- OUTSIDE RECORDS SUMMARY | 2022-09-05 12:15 | XMS_ITS | Continuity of Care Document ---
Author Name Unknown Organization [facility] Address [address] [place] [address]- Care Team Providers Care Technical Sourcing Recruiter Name Role Phone Fauzia Topete MD Primary Care Physician [facility] Date(s): 01[facility]18[facility]21 - 02/17/21 [facility] Care [address] [place] [address] Allergies, Adverse Reactions, Alerts Substance Reaction [...] 11 06/21/08 Tono teixeira 1Result Comment: [12/12/2017] [id number] 2Result Comment: [01/16/2017] [facility] [id number] 3Result Comment: [01/15/2017] done at [facility] 4Result Comment: [01/15/2017] done at [facility] 5Result Comment: [02/04/2017] [facility] [id number] 6Result Comment: [02/04/2017] [facility] [id number] 7Result Comment: [01/15/2017] done at [facility] 8Result Comment: [01/15/2017] done at [facility] 9Result Comment: [01/15/2017] done at [facility] 10Result Comment: [01/15/2017] done at [facility] 11Admin Note: sanofi pasteur Medications [...]
--- OUTSIDE RECORDS SUMMARY | 2022-09-05 12:15 | XMS_ITS | Continuity of Care Document ---
Author Name Unknown Organization [facility] Address [address] [place] [address]- Care Team Providers Care Procedures Analyst Name Role Phone Fauzia Topete MD Primary Care Physician [place] [facility] [place](s): 05/09/20 - 09/04/20 [facility] [address] [place] [address] Discharge Disposition: A-D/C Home Attending Physician: Josh BOUCHER, Cezar Admitting Physician: Rudi Mcnally MD Referring Physician: Amando MCKAY MD, Saulo Engle Allergies, Adverse Reactions, Alerts Substance Reaction Severity [...] 11 06/21/08 G puneet 1Result Comment: [12/12/2017] [id number] 2Result Comment: [01/16/2017] [facility] [id number] 3Result Comment: [01/15/2017] done at [facility] 4Result Comment: [01/15/2017] done at [facility] 5Result Comment: [02/04/2017] [facility] [id number] 6Result Comment: [02/04/2017] [facility] [id number] 7Result Comment: [01/15/2017] done at [facility] 8Result Comment: [01/15/2017] done at [facility] 9Result Comment: [01/15/2017] done at [facility] 10Result Comment: [01/15/2017] done at [facility] 11Admin Note: sanofi pasteur Medications Allopurinol [...] 0 Refills, Maintenance, 08/08/19 11:24:00 EDT, Solution, [facility]/pharmacy #[id number], Partial fill upon patient request, 158, [...] Refills, Maintenance, 03/15/19 15:03:00 EST, Cream, [facility]/pharmacy #[id number], 1 application Topically 3 times a [...]
--- OUTSIDE RECORDS SUMMARY | 2022-09-05 12:15 | XMS_ITS | Continuity of Care Document ---
Author Name Unknown Organization [facility] Address [address] [place] [address]- Care Team Providers Care Scada Technician Name Role Phone Fauzia Topete MD Primary Care Physician Encounter [facility] Date(s): 11/22/19 - 12/22/19 [facility] [address] [place] [id number]- [facility] Attending Physician: Kadi Nuñez Admitting Physician: AdmtrKadi Referring Physician: Admtr ArJeremy Allergies, Adverse Reactions, Alerts Substance Reaction [...] 11 06/21/08 G puneet 1Result Comment: [12/12/2017] [id number] 2Result Comment: [01/16/2017] [facility] [id number] 3Result Comment: [01/15/2017] done at [facility] 4Result Comment: [01/15/2017] done at [facility] 5Result Comment: [02/04/2017] [facility] [id number] 6Result Comment: [02/04/2017] [facility] [id number] 7Result Comment: [01/15/2017] done at [facility] 8Result Comment: [01/15/2017] done at [facility] 9Result Comment: [01/15/2017] done at [facility] 10Result Comment: [01/15/2017] done at [facility] 11Admin Note: sanofi pasteur Medications Allopurinol [...] 2 Refills, Maintenance, 03/15/19 15:03:00 EST, Cream, [facility]/pharmacy #[id number], 1 application Topically 3 times [...]
--- OUTSIDE RECORDS SUMMARY | 2022-09-05 12:15 | XMS_ITS | Continuity of Care Document ---
Author Name Unknown Organization [facility] Address [address] [place] [address]- Care Team Providers Care Magician Helper Name Role Phone Fauzia Topete MD Primary Care Physician Encounter [facility] Date(s): 12/11/21 - 04/16/22 [facility] [address] [place] [id number] Discharge Disposition: A-D/C Home Attending Physician: [...] 11 06/21/08 G puneet 1Result Comment: [12/12/2017] [id number] 2Result Comment: [01/16/2017] [facility] [id number] 3Result Comment: [01/15/2017] done at [facility] 4Result Comment: [01/15/2017] done at [facility] 5Result Comment: [02/04/2017] [facility] [id number] 6Result Comment: [02/04/2017] [facility] [id number] 7Result Comment: [01/15/2017] done at [facility] 8Result Comment: [01/15/2017] done at [facility] 9Result Comment: [01/15/2017] done at [facility] 10Result Comment: [01/15/2017] done at [facility] 11Admin Note: sanofi pasteur Medications Allopurinol [...] anemia Confirmed Active Splenic rupture Confirmed Active Vital Signs Most recent to oldest [Reference Range]: 1 Height 158 cm (02/14/22 10:51 AM) Weight 69.2 kg (02/14/22 10:51 AM) Oxygen Saturation [94-100 %] 96 % (02/14/22 10:51 AM) Pulse Rate [55-90 bpm] 75 bpm (02/14/22 10:51 AM) Body Mass Index [18.5-24.99 kg/m2] 27.72 kg/m2 *H* (02/14/22 10:51 AM) Blood Pressure [90-138/55-84 mm Hg] 140/ 75mm Hg *H* (02/14/22 10:51 AM) Temperature [96.8-100.4 DegF] 97.5 DegF (02/14/22 10:51 AM) Mode of Delivery (Oxygen) Room air (02/14/22 10:51 AM) Blood pressure sites Arm, right (02/14/22 10:51 AM) Temperature Route Temporal (02/14/22 10:51 AM) Dry Weight 69.2 kg (02/14/22 10:51 AM) Weight Obtained Via Standing scale (02/14/22 10:51 AM) Dry Weight Obtained Via Standing scale (02/14/22 10:51 AM) Social History Social History Type Response Smoking Status Former smoker; Tobac co user in household: No; Type: Cigarettes; Other: Quit in 2013; Tobacco use times per day: half a pack to pack a day; Number of years: 30; Total pack years: 30; entered on: 05/29/14 Sex Patient Care team information Care Team Personnel Name: Fauzia Topete MD Position: [facility] Physician (General Medicine) Member Role: PCP Address: Address: [address] [place] [address]- Name: Christine Garg Position: [facility] Outreach Member Role: Lifetime Consulting Physician Name: Temi Wong RN Position: [facility] Onco RN Member Role: Primary Care Nurse Care Team Related Persons Name: COMPA BUCHANAN Address: home [address] [place] [id number]
[2022-09-05] MEDS: Diphth,Pertus(ACell),Tet Adult 0.5 ML SYRINGE IM (12:46)
[2022-09-05] MEDS: Lidocaine HCl 1 % MPF 5 ML VIAL 10 ML SUBCUT (13:50)
== END 2022-09-05 14:05 | disposition home or self-care (01) ==
PROVIDERS: Emergency Provider Emergency Medicine Emergency Medical Services; PCP Internal Medicine
DX: S61.011A Laceration without foreign body of right thumb without damage to nail, initial encounter (principal); W26.0XXA Contact with knife, initial encounter; Y93.9 Activity, unspecified; Y92.9 Unspecified place or not applicable; Y99.9 Unspecified external cause status
CPT/HCPCS: 12001; 90471; 90715; 99284

== ENCOUNTER 2022-11-11 12:28 | Outpatient (AMB) | payer MEDICARE, SELFPAY ==
[2022-11-11 13:12] VITALS: BP 136/72; PULSE 70; O2SAT 95; BMI 28.9
--- NOTE | 2022-11-11 13:12 | MHC.PC.OV ---
Vital Signs 11/11/22 13:12 Height 5 ft 2 in Weight 158 lb BMI 28.9 BP 136/72 Blood Pressure Location Lt brachial Position Sitting Pulse 70 Pulse Source Pulse Oximeter Pulse Oximetry (%) 95 Oxygen Delivery Method Room Air Intake Visit Reasons: 6M follow up Intake Note: Pt is here today for 6 months follow up visit. Allergies WYATT Inhibitors [WYATT INHIBITORS] Allergy (Severe, Verified 11/11/22 13:23) ANGIOEDEMA morphine Allergy (Unknown, Verified 11/11/22 13:23) rash atorvastatin [Lipitor] Adverse Reaction (Unknown, Verified 11/11/22 13:23) muscle pain metformin Adverse Reaction (Unknown, Verified 11/11/22 13:23) diarrhea pravastatin Adverse Reaction (Unknown, Verified 11/11/22 13:23) mylagia Angiotensin-converting enzyme inhibitor agent (substance) Allergy (Uncoded 11/11/22 13:23) Angioedema Medication List - Last Reconciled 11/11/22 by Fauzia Topete MD allopurinol 100 mg PO DAILY alprazolam 0.5 mg PO DAILY amlodipine 5 mg PO DAILY atenolol 100 mg PO DAILY atorvastatin 20 mg PO DAILY blood sugar diagnostic (FreeStyle Test strips) check glucose once a day cholecalciferol (vitamin D3) 50 mcg PO DAILY cyanocobalamin (vitamin B-12) 1,000 mcg IM .qmonth folic acid 1 mg PO DAILY [freestyle glucometer As directed] hydrochlorothiazide 25 mg PO DAILY lancets (FreeStyle Lancets) check glucose once a day levothyroxine 75 mcg PO DAILY mirtazapine 30 mg PO BEDTIME nystatin 5 mL PO QID syringe with needle, safety use one syringe once a month for B12 injections Tobacco use date assessed: 11/11/22 Fall risk assessment: No Falls in past year Last assessed Fall Risk: 11/11/22 Dental Screening Dental Screen Date: 11/11/22 Did you have a dental visit in the last 12 months?: Yes Did you have a dental problem in the last 6 months where you did not have access to dental care?: No Was dental information given to patient?: Patient has dentist HPI 6M follow up HPI Details PATIENT PRESENTS FOR THE FOLLOW-UP OF HYPERTENSION CHRONIC KIDNEY DISEASE AND HYPERLIPIDEMIA. She follows up with teacher drama every 3 months. [facility] Medical History Annual physical exam Chronic kidney disease Colonoscopy refused Depression Folic acid deficiency HTN (hypertension) Hyperglycemia Hyperlipidemia Hypothyroid Mammogram normal Normal Pap smear Palpitations Proteinuria PTSD (post-traumatic stress disorder) Spleen injury Tongue cancer Vitamin D deficiency Surgical History H/O colonoscopy Family History Father Lung cancer HTN (hypertension) Mother HTN (hypertension) Brother No problems noted. Sister No problems noted. Social History Housing: House Alcohol intake: current Alcohol intake frequency: holidays/special occasions only Patient Tobacco Use Status: Former Tobacco user e-Cigarette/Vaping Use: Never Used Current occupational status: retired Cognitive needs: No Hearing needs: No Vision needs: Yes Questionnaire Thrive Questionnaire Date Thrive assessed: 04/21/22 MAMIE-7 AMB Questionnaire MAMIE-7 Date MAMIE - 7 assessed: 04/21/22 Source: Developed by Drs. Good Boogie, Zina Storm, Joby Silveira and colleagues, with an educational jules from [employer]. Review of Systems Const All systems reviewed & are unremarkable except as noted in HPI and below Reports no additional complaints Eyes Reports no additional complaints ENT Reports no additional complaints Card Reports no additional complaints Resp Reports no additional complaints GI Reports no additional complaints Reports no additional complaints Physical exam (Primary Care) Vital Signs: Last Vital Signs Pulse 70 11/11/22 13:12 BP 136/72 11/11/22 13:12 Pulse Ox 95 11/11/22 13:12 Oxygen Delivery Method Room Air 11/11/22 13:12 BMI result Body Mass Index 28.9 Tobacco/Smoking Status: Tobacco use Status Tobacco use date assessed 11/11/22 11/11/22 13:25 Patient Tobacco Use Status Former Tobacco user 11/11/22 13:12 e-Cigarette/Vaping Use Never Used 11/11/22 13:12 Thrive Assessment: Date of Thrive Assessment Date Thrive assessed 04/21/22 11/11/22 13:12 Const General: no acute distress HENMT Head: Yes normal to inspection Ears: hearing grossly normal bilaterally Face and sinus: Yes normal facial exam Throat: Yes posterior oropharynx normal Neck Neck: Yes supple Resp Effort & Inspection: normal respiratory effort Auscultation: clear to auscultation bilaterally Cardio Rhythm: regular rhythm Heart sounds: S1 normal heart sound present and S2 normal heart sound present GI Inspection: Yes normal to inspection Palpation (GI): Soft to palpation Percussion: Yes normal to percussion Assessment and Plan Assessment & Plan (1) HTN (hypertension): Code(s): I10 - Essential (primary) hypertension Plan: Continue current medications (2) Hypothyroid: Code(s): E03.9 - Hypothyroidism, unspecified Plan: Continue levothyroxine check TSH level (3) Hyperlipidemia: Code(s): E78.5 - Hyperlipidemia, unspecified Plan: Continue atorvastatin (4) Hyperglycemia: Comment: A1C 5.9, 07/09/2020 Code(s): R73.9 - Hyperglycemia, unspecified Plan: Monitor A1c follow ADA diet (5) Pernicious anemia: Comment: On monthly B12 injections Code(s): D51.0 - Vitamin B12 deficiency anemia due to intrinsic factor deficiency Plan: Continue B12 injection (6) Chronic kidney disease: Comment: Dr. Alfaro, Wyatt inhibitors cause angioedema, patient cannot afford Farxiga Code(s): N18.9 - Chronic kidney disease, unspecified Plan: Monitor renal function and follow-up with teacher drama every 3 months Orders: Orders TSH reflex Free T4 3 Months D51.0 - Vitamin B12 deficiency anemia due to intrinsic factor deficiency, E03.9 - Hypothyroidism, unspecified, E78.5 - Hyperlipidemia, unspecified, I10 - Essential (primary) hypertension, N18.9 - Chronic kidney disease, unspecified, R73.9 - Hyperglycemia, unspecified Hemoglobin A1c 3 Months D51.0 - Vitamin B12 deficiency anemia due to intrinsic factor deficiency, E03.9 - Hypothyroidism, unspecified, E78.5 - Hyperlipidemia, unspecified, I10 - Essential (primary) hypertension, N18.9 - Chronic kidney disease, unspecified, R73.9 - Hyperglycemia, unspecified Comprehensive [place]. Panel Fast 3 Months D51.0 - Vitamin B12 deficiency anemia due to intrinsic factor deficiency, E03.9 - Hypothyroidism, unspecified, E78.5 - Hyperlipidemia, unspecified, I10 - Essential (primary) hypertension, N18.9 - Chronic kidney disease, unspecified, R73.9 - Hyperglycemia, unspecified Vitamin B12 3 Months D51.0 - Vitamin B12 deficiency anemia due to intrinsic factor deficiency, E03.9 - Hypothyroidism, unspecified, I10 - Essential (primary) hypertension, N18.9 - Chronic kidney disease, unspecified, R73.9 - Hyperglycemia, unspecified Medications: New triamcinolone acetonide 0.1% 1 appl topical BID 30 grams 3RF Coding Level of Care Code Est Pt Level 4 (64462) Diagnoses HTN (hypertension) I10 Hypothyroid E03.9 Hyperlipidemia E78.5 Hyperglycemia R73.9 Pernicious anemia D51.0 Chronic kidney disease N18.9
== END 2022-11-11 13:59 | disposition home or self-care (01) ==
PROVIDERS: Visit Provider Internal Medicine
DX: I12.9 Hypertensive chronic kidney disease with stage 1 through stage 4 chronic kidney disease, or unspecified chronic kidney disease (principal); E03.9 Hypothyroidism, unspecified; N18.9 Chronic kidney disease, unspecified; E78.5 Hyperlipidemia, unspecified; R73.9 Hyperglycemia, unspecified; D51.0 Vitamin B12 deficiency anemia due to intrinsic factor deficiency
CPT/HCPCS: 99214

== ENCOUNTER 2024-02-29 14:39 | Outpatient (AMB) | payer MEDICARE, SELFPAY ==
--- NOTE | 2024-02-29 14:40 | MHC.OFFVIS ---
Vital Signs 02/29/24 14:47 Height 5 ft 2 in Weight 149 lb 14.629 oz BMI 27.4 BP 196/95 H Blood Pressure Location Lt brachial Position Sitting Pulse 85 Intake Visit Reasons: Rectal Bleeding Intake Note: Karissa presents in the office as a new patient for rectal bleeding. CC: she states the bleeding is on and off and very random. No bleeding at the moment and denies irregular bowel movements. Allergies ANTONIO Inhibitors [ANTONIO INHIBITORS] Allergy (Severe, Verified 02/29/24 14:48) ANGIOEDEMA morphine Allergy (Unknown, Verified 02/29/24 14:48) rash atorvastatin [Lipitor] Adverse Reaction (Unknown, Verified 02/29/24 14:48) muscle pain metformin Adverse Reaction (Unknown, Verified 02/29/24 14:48) diarrhea pravastatin Adverse Reaction (Unknown, Verified 02/29/24 14:48) mylagia HPI HPI Rectal Bleeding: Details: HPI 68 yr old f here for assessment She has been having on and off rectal bleeding going on for 3 yrs usu seen on wiping she denies constipation, or pushing, straining no abdominal pain no nausea, vomiting, or chills appettite is good - weight is stable she went to [facility]o [facility] and was referred her to make sure no other problems she had colonoscopy 2009 complicated by splenic laceration rx with embolzation she had PTE as well ROS: Constitutional : No Weight loss, No Fever, No Chills ENT/Mouth : No sore throat, No Rhinorrhea Eyes: No Swelling, No Redness Cardiovascular : No Chest Pain, No SOB, No Edema Respiratory : No Cough, No Sputum, No Wheezing Gastrointestinal : see HPI Genitourinary : NO Dysuria, No Urinary Frequency, No Hematuria, No Urgency Musculoskeletal : + joint pain, No Myalgias, No Joint Swelling Skin : No Skin Lesions, No rash Neuro : No Weakness, No Numbness, No Dizziness, No Headache Psych : No Anxiety/Panic, No Depression Heme/Lymph: No Bruising, No Lymphadenopathy Endocrine : No Polyuria, No Polydipsia All other systems reviewed and are negative. PMH: Chronic kidney disease Colonoscopy refused Depression Folic acid deficiency HTN (hypertension) Hyperglycemia Hyperlipidemia Hypothyroid Mammogram normal Normal Pap smear Palpitations Proteinuria PTSD (post-traumatic stress disorder) Spleen injury Tongue cancer Vitamin D deficiency Surgical History H/O colonoscopy Family History Father Lung cancer HTN (hypertension) Mother HTN (hypertension) Brother No problems noted. Sister No problems noted. Social History Housing: House Alcohol intake: current Alcohol intake frequency: holidays/special occasions only Patient Tobacco Use Status: Former Tobacco user e-Cigarette/Vaping Use: Never Used Current occupational status: retired Cognitive needs: No Hearing needs: No Vision needs: Yes EXAM: GENERAL: The patient is well developed and nontoxic. VITAL SIGNS:see workflow HEENT: Nonicteric sclerae, PERRLA, EOMI. Oropharynx clear. Moist mucous membranes. Conjunctivae appear well perfused. No thyroid mass. CHEST: Chest wall is nontender. HEART: Regular rate and rhythm without murmurs. LUNGS: Clear to auscultation bilaterally. ABDOMEN: Soft, positive bowel sounds, nontender, no organomegaly.no flank tenderness SKIN: No rash, no excessive bruising, petechiae, or purpura. NEUROLOGIC: Cranial nerves II-XII intact without motor/sensory deficit. Psych: normal affect A/P: 1/ Rectal bleeding, on and off for 3 yrs possibly hemorrhoids, but sx are slightly atypical, need to r/o low lying lesion, or proctitis PLAN: 1/ Discussed sigmoidoscopy vs colo given her prior splenic laceration, 2/ she wants to try colo and will use colowarp--suprep sent [facility] Medical History Folic acid deficiency Vitamin D deficiency Annual physical exam Proteinuria Hyperglycemia Palpitations Normal Pap smear Colonoscopy refused Mammogram normal HTN (hypertension) Hypothyroid Hyperlipidemia PTSD (post-traumatic stress disorder) Depression Tongue cancer Spleen injury Chronic kidney disease Surgical History H/O colonoscopy Family History (Updated 02/29/24 @ 14:52 by EMIR Kiran) Father Lung cancer HTN (hypertension) Mother HTN (hypertension) Brother No problems noted. Sister No problems noted. Maternal Aunt Colon cancer Maternal Grandmother Colon cancer Social History Housing: House Alcohol intake: current Alcohol intake frequency: holidays/special occasions only Patient Tobacco Use Status: Former Tobacco user e-Cigarette/Vaping Use: Never Used Current occupational status: retired Cognitive needs: No Hearing needs: No Vision needs: Yes Physical Exam Vital Signs: Last Vital Signs Pulse 85 02/29/24 14:47 BP 196/95 H 02/29/24 14:47 BMI result Body Mass Index 27.4 Assessment & Plan Assessment & Plan (1) Rectal bleeding: Code(s): K62.5 - Hemorrhage of anus and rectum Category: Medical Plan: see above Medications: New sodium,potassium,mag sulfates 17.5-3.13-1.6 gram (Suprep Bowel Prep Kit) DILUTE; drink 1/2 at 6-8 pm and half at 11 PM- 1AM 354 mL 0RF Coding Level of Care Code New Pt Level 4 (40343) Diagnoses Rectal bleeding K62.5
[2024-02-29 14:47] VITALS: BP 196/95; PULSE 85; BMI 27.4
== END 2024-02-29 16:05 | disposition home or self-care (01) ==
PROVIDERS: PCP Internal Medicine; Visit Provider Internal Medicine Gastroenterology
DX: K62.5 Hemorrhage of anus and rectum (principal)
CPT/HCPCS: 99204

== ENCOUNTER → 2024-02-29 14:39 | Outpatient (BNVA) | payer MEDICARE, SELFPAY | PROVIDERS: PCP Internal Medicine; Visit Provider Internal Medicine Gastroenterology | DX: K62.5 Hemorrhage of anus and rectum (principal) | CPT/HCPCS: 99202 ==

== ENCOUNTER 2024-03-22 11:22 | Day surgery (SDC) | payer MEDICARE, SELFPAY ==
--- NOTE | 2024-03-21 12:24 | P.CONAN_ITS ---
Documented by User: Elaine Hilliard NP 03/21/24 14:03 HPI - Anesthesia Eval Consult details Narrative: 68yo F for Colonoscopy Tongue cancer s/p resection and radiation 2018 Follows renal, baseline creat ~1.3 - last office visit 12/2023 - note requested/pending [facility] Active Problems Active Problems: All Active Problems Rectal bleeding (Acute) Open wound of thumb (Acute) Postmenopausal (Acute) Folic acid deficiency (Acute) Vitamin D deficiency (Acute) Annual physical exam (Acute) Acute sinusitis (Acute) Proteinuria (Acute) Hyperglycemia (Acute) Palpitations (Acute) Pernicious anemia (Acute) Normal Pap smear (Acute) Colonoscopy refused (Acute) Mammogram normal (Acute) HTN (hypertension) (Acute) Depression (Acute) Tongue cancer (Acute) Hypothyroid (Acute) Chronic kidney disease (Acute) Hyperlipidemia (Acute) Past Medical History Medical History Folic acid deficiency Vitamin D deficiency Annual physical exam Proteinuria Hyperglycemia Palpitations Normal Pap smear Colonoscopy refused Mammogram normal HTN (hypertension) Hypothyroid Hyperlipidemia PTSD (post-traumatic stress disorder) Depression Tongue cancer Spleen injury Chronic kidney disease Family History Family History (Updated 02/29/24 @ 14:52 by EMIR Kiran) Father Lung cancer HTN (hypertension) Mother HTN (hypertension) Brother No problems noted. Sister No problems noted. Maternal Aunt Colon cancer Maternal Grandmother Colon cancer Surgical History Surgical History H/O colonoscopy Social History Social History Housing: House Alcohol intake: current Alcohol intake frequency: holidays/special occasions only Patient Tobacco Use Status: Former Tobacco user e-Cigarette/Vaping Use: Never Used Use of substances other than those prescribed or required for medical reasons: No Are you DNR?: No Advance Directives: No Advance Directives Information Provided: Yes Current occupational status: retired Cognitive needs: No Hearing needs: No Vision needs: Yes Meds Allergies Allergy/AdvReac Type Severity Reaction Status Date / Time ANTONIO Inhibitors Allergy Severe ANGIOEDEMA Verified 03/22/24 11:43 [ANTONIO INHIBITORS] morphine Allergy Unknown rash Verified 03/22/24 11:43 atorvastatin [Lipitor] AdvReac Unknown muscle pain Verified 03/22/24 11:43 metformin AdvReac Unknown diarrhea Verified 03/22/24 11:43 pravastatin AdvReac Unknown mylagia Verified 03/22/24 11:43 Home Medications ?Medication ?Instructions ?Recorded ?Confirmed ?Last Taken ?Type allopurinol 100 mg tablet 100 mg PO DAILY 12/14/19 03/22/24 Unknown History atenolol 100 mg tablet 100 mg PO DAILY 12/14/19 03/22/24 03/22/24 07:30 History mirtazapine 30 mg tablet 30 mg PO BEDTIME 12/14/19 03/22/24 Unknown History levothyroxine 75 mcg tablet 75 mcg PO DAILY 07/09/20 03/22/24 03/22/24 07:30 History alprazolam 0.5 mg tablet 0.5 mg PO DAILY 12/13/20 03/22/24 03/22/24 07:30 History hydrochlorothiazide 25 mg tablet 25 mg PO DAILY 12/13/20 03/22/24 Unknown History atorvastatin 20 mg tablet 20 mg PO DAILY 11/11/22 03/22/24 Unknown History ubidecarenone-omega 3-vit E 25 1 cap PO DAILY 02/29/24 03/22/24 Unknown History mg-150 (90-60) mg-200 unit capsule (Co Q-80-Khjxjca E-Fish Oil) valsartan 160 mg tablet 160 mg PO DAILY 02/29/24 03/22/24 Unknown History Assessment and Plan Assessment Anesthesia Assessment: Chart Reviewed Documented by User: Ady Saldana MD 03/22/24 12:36 PMFSH Past Medical History Medical History Folic acid deficiency Vitamin D deficiency Annual physical exam Proteinuria Hyperglycemia Palpitations Normal Pap smear Colonoscopy refused Mammogram normal HTN (hypertension) Hypothyroid Hyperlipidemia PTSD (post-traumatic stress disorder) Depression Tongue cancer Spleen injury Chronic kidney disease Family History Family History (Updated 02/29/24 @ 14:52 by EMIR Kiran) Father Lung cancer HTN (hypertension) Mother HTN (hypertension) Brother No problems noted. Sister No problems noted. Maternal Aunt Colon cancer Maternal Grandmother Colon cancer Family history of problems with anesthesia: No Surgical History Surgical History H/O colonoscopy History of Problems with Anesthesia: No Social History Social History Housing: House Alcohol intake: current Alcohol intake frequency: holidays/special occasions only Patient Tobacco Use Status: Former Tobacco user e-Cigarette/Vaping Use: Never Used Use of substances other than those prescribed or required for medical reasons: No Are you DNR?: No Advance Directives: No Advance Directives Information Provided: Yes Current occupational status: retired Cognitive needs: No Hearing needs: No Vision needs: Yes Meds Allergies Allergy/AdvReac Type Severity Reaction Status Date / Time ANTONIO Inhibitors Allergy Severe ANGIOEDEMA Verified 03/22/24 11:43 [ANTONIO INHIBITORS] morphine Allergy Unknown rash Verified 03/22/24 11:43 atorvastatin [Lipitor] AdvReac Unknown muscle pain Verified 03/22/24 11:43 metformin AdvReac Unknown diarrhea Verified 03/22/24 11:43 pravastatin AdvReac Unknown mylagia Verified 03/22/24 11:43 Home Medications ?Medication ?Instructions ?Recorded ?Confirmed ?Last Taken ?Type allopurinol 100 mg tablet 100 mg PO DAILY 12/14/19 03/22/24 Unknown History atenolol 100 mg tablet 100 mg PO DAILY 12/14/19 03/22/24 03/22/24 07:30 History mirtazapine 30 mg tablet 30 mg PO BEDTIME 12/14/19 03/22/24 Unknown History levothyroxine 75 mcg tablet 75 mcg PO DAILY 07/09/20 03/22/24 03/22/24 07:30 History alprazolam 0.5 mg tablet 0.5 mg PO DAILY 12/13/20 03/22/24 03/22/24 07:30 History hydrochlorothiazide 25 mg tablet 25 mg PO DAILY 12/13/20 03/22/24 Unknown History atorvastatin 20 mg tablet 20 mg PO DAILY 11/11/22 03/22/24 Unknown History ubidecarenone-omega 3-vit E 25 1 cap PO DAILY 02/29/24 03/22/24 Unknown History mg-150 (90-60) mg-200 unit capsule (Co F-49-[id number] E-Fish Oil) valsartan 160 mg tablet 160 mg PO DAILY 02/29/24 03/22/24 Unknown History Exam Airway Mallampati Class: II TM Dist: >3cm Neck ROM: Full Assessment and Plan Assessment Anesthesia Assessment: Anesthesia Plan Discussed Final Anesthetic Review Family History of Problems with Anesthesia: No History of Problems with Anesthesia: No NPO: Yes ASA Class: III Final Preanesthetic Review: No Changes in Pt Med Stat, Meds/Allgs Chart Reviewed, Consent Obtained/Reviewed, Anes Risks/Benef Reviewed and DNR Form (If Appl.) Patient Risk: Intermediate Procedure Risk: Low Anesthetic Plan Anesthetic Plan: TIVA Disposition: Standard PACU
[2024-03-22 11:44] VITALS: BP 195/94; PULSE 73; RESP 14; TEMP 37.1; O2SAT 98; BMI 26.7
[2024-03-22 12:09] VITALS: BP 177/87
[2024-03-22] MEDS: Lactated Ringers 1,000 ML 100 ML IVCONT (12:09)
--- NOTE | 2024-03-22 12:57 | MHC.SHP ---
Pre-Procedural Eval Section A - 24 Hr Update-Section A only Date of Service: 03/22/24 The patient is an INPATIENT: No The patient has been examined within 24 hours of the surgical procedure. The History & Physical has been completed within 30 days and I have reviewed it.: Yes Section B - Complete if H&P > 30 days Chief Complaint: Hemorrhage of anus and rectum Allergies: Allergies Allergy/AdvReac Type Severity Reaction Status Date / Time ANTONIO Inhibitors Allergy Severe ANGIOEDEMA Verified 03/22/24 11:43 [ANTONIO INHIBITORS] morphine Allergy Unknown rash Verified 03/22/24 11:43 atorvastatin [Lipitor] AdvReac Unknown muscle pain Verified 03/22/24 11:43 metformin AdvReac Unknown diarrhea Verified 03/22/24 11:43 pravastatin AdvReac Unknown mylagia Verified 03/22/24 11:43 Plan Diagnosis/Plan: Unchanged I have reviewed the history and physical and performed a pertinent physical examination on my patient. No changes have occurred unless specified. Time Spent With Patient Time: Total time managing care of this patient today ____ minutes.
--- NOTE | 2024-03-22 13:25 | HO.OPN-COLON ---
Colonoscopy Operative Note Operative Note Date of Service: 03/22/24 Narrative: Operative Information Procedure Description: Colonoscopy Indication: rectal bleeding Anesthesia: MAC COLONOSCOPY Instrument: Olympus variable stiffness pediatric scope 190L Colonoscopy Monitoring: Vital signs and clinical assessment, continuous EKG monitoring, Pulse oximetry, Carbon Dioxide monitoring and blood pressure monitoring were done throughout the procedure. Colon withdrawal time was 9 minutes. Procedure: The patient was placed in the left lateral decubitis position and pre-procedure medications were administered. After a digital rectal examination of the ano-rectum, the video colonoscope was inserted into the rectum and advanced through the colon to the cecum/TI. The colonoscope was slowly withdrawn in a retrograde panoramic fashion and the colon mucosa was carefully examined including a retroflexed view of the rectum. Findings and interventions are described below. Procedure Difficulty: easy with colowrap Findings: Terminal Ileum-normal Cecum:normal Ascending Colon: normal Transverse Colon -normal Descending Colon:normal Sigmoid Colon: mild diverticulosis, 6-8 mm sessile polyp removed with cold snare Rectum: Retroflexion with small to medium internal hemorrhoids seen, grade I Anorectum - normal Intervention: cold snare Colon preparation: Zachary Bowel Preparation Scale Right colon; 2 Transverse colon: 2 Left colon; 2 (0 = Unprepared colon segment with mucosa not seen due to solid stool that cannot be cleared. 1 = Portion of mucosa of the colon segment seen, but other areas of the colon segment not well seen due to staining, residual stool and/or opaque liquid. 2 = Minor amount of residual staining, small fragments of stool and/or opaque liquid, but mucosa of colon segment seen well. 3 = Entire mucosa of colon segment seen well with no residual staining, small fragments of stool or opaque liquid) Impression and Post Procedure Diagnosis: diverticulosis colon polyp internal hemorrhoids Plan: High fiber diet leaflet Avoid straining at stool, epsom salts and sitz bath, anusol supps or cream Repeat Colonoscopy in 5 years if health allows or earlier if clinically indicated Above findings were reviewed with the patient and relevant handouts were provided if indicated.
[2024-03-22 13:30] VITALS: BP 113/61; PULSE 70; RESP 15; TEMP 36.5; O2SAT 96
[2024-03-22 13:44] VITALS: BP 134/71; PULSE 70; RESP 16; TEMP 36.5; O2SAT 97
== END 2024-03-22 14:03 | disposition home or self-care (01) ==
PROVIDERS: PCP Internal Medicine; Visit Provider Internal Medicine Gastroenterology
PROC: 0DJD8ZZ Inspection of Lower Intestinal Tract, Via Natural or Artificial Opening Endoscopic (ICD-10-PCS; CPT 45378; principal; 2024-03-22 13:40)
DX: D12.5 Benign neoplasm of sigmoid colon (principal); K57.30 Diverticulosis of large intestine without perforation or abscess without bleeding; K64.0 First degree hemorrhoids; K62.5 Hemorrhage of anus and rectum; I12.9 Hypertensive chronic kidney disease with stage 1 through stage 4 chronic kidney disease, or unspecified chronic kidney disease; N18.9 Chronic kidney disease, unspecified; E78.5 Hyperlipidemia, unspecified; E03.9 Hypothyroidism, unspecified; E55.9 Vitamin D deficiency, unspecified; E53.8 Deficiency of other specified B group vitamins; D51.0 Vitamin B12 deficiency anemia due to intrinsic factor deficiency; Z85.810 Personal history of malignant neoplasm of tongue; Z92.3 Personal history of irradiation; Z87.891 Personal history of nicotine dependence
CPT/HCPCS: 45385; 88305; J2003; J2704

== ENCOUNTER → 2024-03-22 11:22 | Outpatient (BNV) | payer MEDICARE, SELFPAY | PROVIDERS: PCP Internal Medicine; Visit Provider Internal Medicine Gastroenterology | DX: K62.5 Hemorrhage of anus and rectum (principal); D12.5 Benign neoplasm of sigmoid colon; K57.30 Diverticulosis of large intestine without perforation or abscess without bleeding; K64.0 First degree hemorrhoids | CPT/HCPCS: 45385 ==